=== PATIENT | male | born 1990 | race Two or more races ===

== ENCOUNTER 2019-09-27 12:38 | Emergency (ER) | payer OTHER ==
[~2019-09-27] VITALS: Ht 177.8 cm; Wt 97.5 kg
== END 2019-09-27 17:48 | disposition home or self-care (01) ==
LOC: ER 12:38
DX: B34.9 Viral infection, unspecified (principal); Z20.828 Contact with and (suspected) exposure to other viral communicable diseases

== ENCOUNTER 2019-10-05 14:19 | Emergency (ER) | payer OTHER ==
[~2019-10-05] VITALS: Ht 177.8 cm; Wt 97.5 kg
== END 2019-10-05 20:02 | disposition home or self-care (01) ==
LOC: ER
DX: B34.9 Viral infection, unspecified (principal); R50.9 Fever, unspecified

== ENCOUNTER 2019-11-14 13:00 | Outpatient (CLI) | payer OTHER | END 2019-11-14 15:00 | disposition home or self-care (01) | LOC: PPH VACUNA 13:00 | DX: Z23 Encounter for immunization (principal) ==

== ENCOUNTER 2019-12-18 09:51 | Outpatient (CLI) | payer OTHER | END 2019-12-18 10:03 | disposition home or self-care (01) | LOC: RAD 09:51 | DX: S62.643A Nondisplaced fracture of proximal phalanx of left middle finger, initial encounter for closed fracture (principal) ==

== ENCOUNTER 2020-11-23 08:00 | Outpatient (CLI) | payer OTHER | END 2020-11-23 08:30 | disposition home or self-care (01) | LOC: PPH VACUNA 08:00 | PROVIDERS: ATTEND Emergency Medicine Pediatric Emergency Medicine | DX: Z23 Encounter for immunization (principal) ==

== ENCOUNTER → 2020-11-27 | Emergency (ER) | payer OTHER ==
[~2020-11-27] VITALS: Ht 177.8 cm; Wt 97.1 kg
== END | disposition home or self-care (01) ==
LOC: ER 20:03
DX: L42 Pityriasis rosea (principal)

== ENCOUNTER 2021-11-10 14:46 | Outpatient (CLI) | payer OTHER | END 2021-11-10 14:56 | disposition home or self-care (01) | LOC: PPH VACUNA 14:46 | PROVIDERS: ATTEND Emergency Medicine Pediatric Emergency Medicine | DX: Z23 Encounter for immunization (principal) ==

== ENCOUNTER 2021-11-10 15:30 | Outpatient (CLI) | payer OTHER | END 2021-11-10 15:35 | disposition home or self-care (01) | LOC: PPH VACUNA 15:30 | PROVIDERS: ATTEND Emergency Medicine Pediatric Emergency Medicine | DX: Z23 Encounter for immunization (principal) ==